=== PATIENT | male | born 1945 | race Caucasian/White ===

== ENCOUNTER 2016-10-09 10:20 | Inpatient (IN) | payer MEDICARE, OTHER ==
[~2016-10-09] VITALS: Ht 170.2 cm; Wt 75.8 kg
[~2016-10-09 10:20] MED LIST: ASPIRIN325 MG PO; BENADRYL25 MG PO; CYCLOBENZAPRINE10 MG PO; FLAGYL500 MG PO; HYDROCODONE-APA1 TAB PO; LEVAQUIN750 MG PO; LIDOCAINE50 GM TOPICAL; LINZESS145 MCG PO; LOTREL 5/20 MG1 CAP; LOVASTATIN20 MG PO; MOBIC7.5 MG PO; ULTRAM50 MG PO; XALATAN 0.0052.5 ML EACH EYE; [UNRECOGNIZED DRUG - OTHER] RC
--- NOTE | 2016-10-09 10:30 | NUR ---
PATIENT RECEIVED TO FLOOR FROM ADMISSIONS VIA WHEELCHAIR WITH HOSPITAL STAFF AND FAMILY. TRANSFERRED SELF TO BED. POSITIONED FOR COMFORT. A/O X4. RESPIRATIONS EVEN AND UNLABORED. ORIENTED TO ROOM. SIDE RAILS UP X2. BED IN LOW POSITION. CALL LIGHT IN REACH.
[2016-10-09] MEDS ORDERED: DURAGESIC1 PATCH .1 TRANSDERM (10:35)
--- NOTE | 2016-10-09 10:35 | NUR ---
INSTRUCTED PATIENT HE WOULD NOT BE ABLE TO HAVE ANYTHING TO EAT OR DRINK UNTIL AFTER CT SCAN WAS FINISHED. STATES UNDERSTANDING.
[2016-10-09] MEDS ORDERED: LIDOCAINE50 GM TOPICAL (10:36)
--- NOTE | 2016-10-09 11:00 | NUR ---
20 GAUGE IV SITED TO LEFT FOREARM X1 ATTEMPT. FLUSHES EASY WITH BRISK BLOOD RETURN PRESENT. SECURED WITH TAPE AND TEGADERM. WELL TOLERATED.
[2016-10-09 11:06] VITALS: BP 107/47
--- NOTE | 2016-10-09 11:35 | NUR ---
IV ABX INITIATED PER ORDER. C/O PAIN 03/27. 1 TAB PERCOCET ADMINISTERED WITH SIP OF WATER. DENIES FURTHER NEEDS. SIDE RAILS UP X2. BED IN LOW POSITION. CALL LIGHT IN REACH.
[2016-10-09 11:42] LABS: BASOPHILS 0.3 % (0.0-2.0); EOSINOPHILS 3.7 % (0-7); HEMATOCRIT 30.6 % (42.0-54.0); HEMOGLOBIN 10.5 g/dL (13.5-17.5); IMMATURE GRANULOCYTES 1.1 % (0-5); LYMPHOCYTES 8.3 % (15-50); MCH 32.8 pg (26.0-34.0); MCHC 34.3 g/dL (31.0-37.0); MCV 95.6 fL (80.0-100.0); MEAN PLATELET VOLUME 8.8 fL (7.4-10.4); MONOCYTES 9.9 % (2-11); NEUTROPHILS 76.7 % (40-80); PLATELET COUNT 236 10x3/uL (130-400); RDW 16.5 % (11.5-14.5); WBC 13.1 10x3/uL (4.8-10.8)
[2016-10-09 11:51] LABS: CALC OSMOLALITY 272 mosm/kg (275-300); CALCIUM 8.5 mg/dL (8.5-10.1); CHLORIDE - SERUM 100 mmol/L (98-107); CREATININE - SERUM 0.8 mg/dL (0.6-1.3); GLUCOSE 92 mg/dL (74-106); POTASSIUM - SERUM 4.3 mmol/L (3.5-5.1); SODIUM 136 mmol/L (136-145); UREA NITROGEN 14 mg/dL (7-18); eGFR NON AFRICAN AMERICAN > 90 mL/min (90-120)
--- NOTE | 2016-10-09 14:50 | NUR ---
PATIENT OFF FLOOR TO CT VIA BED.
[2016-10-09 15:40] VITALS: BP 95/42
--- NOTE | 2016-10-09 17:00 | NUR ---
PATIENT UP TO RESTROOM WITH ASSIST FROM FAMILY. DENIES NEEDS. STATES THEY DID A SITZ BATH EARILER.
[2016-10-09 19:00] VITALS: BP 107/51
--- NOTE | 2016-10-09 19:30 | NUR ---
RECIEVED SHIFT REPORT. PT IS LYING IN BED. ALERT AND ORIENTED AND ABLE TO VERBALIZE NEEDS. IV IS PATENT AND SALINE LOC AT THIS TIME. PT IS AMBULATORY BUT WAS INSTRUCTED TO CALL FOR ANY ASSISTANCE NEEDED. PT STATES PAIN IS 6/10. NO NEEDS ARE VERBALIZED AT THIS TIME. WILL CONTINUE TO MONITOR. SIDE RAILS ARE UP X 2. BED IS IN LOWEST POSITION. CALL LIGHT IS WITHIN REACH.
--- NOTE | 2016-10-09 20:24 | NUR ---
SHIFT ASSESSMENT COMPLETED. ANTIBIOTICS HUNG PER ORDER. PT C/DO PAIN 01/25. ADMINISTERED PRESCRIBED PRN PERCOCET PER ORDER. DENIES FURTHER NEEDS. WILL MONITOR. SIDE RAILS X 2. BED LOW. CALL LIGHT IN REACH.
[2016-10-10 04:00] VITALS: BP 110/59
[2016-10-10 05:39] LABS: BASOPHILS 0.2 % (0.0-2.0); EOSINOPHILS 4.7 % (0-7); HEMATOCRIT 33.9 % (42.0-54.0); HEMOGLOBIN 11.1 g/dL (13.5-17.5); IMMATURE GRANULOCYTES 1.3 % (0-5); LYMPHOCYTES 7.6 % (15-50); MCH 31.9 pg (26.0-34.0); MCHC 32.7 g/dL (31.0-37.0); MCV 97.4 fL (80.0-100.0); MEAN PLATELET VOLUME 9.3 fL (7.4-10.4); MONOCYTES 9.5 % (2-11); NEUTROPHILS 76.7 % (40-80); PLATELET COUNT 281 10x3/uL (130-400); RBC 3.48 10x6/uL (4.20-6.10); RDW 16.7 % (11.5-14.5); WBC 12.1 10x3/uL (4.8-10.8)
[2016-10-10 08:02] VITALS: BP 92/51
[2016-10-10 12:22] VITALS: BP 110/53
[2016-10-10 12:50] VITALS: Ht 170.2 cm; Wt 75.8 kg
[2016-10-10 16:04] VITALS: BP 123/58
--- NOTE | 2016-10-10 19:00 | NUR ---
PATIENT IN BED WATCHING TV. HOB 30 DEGREES. AAOX4. RR EVEN AND UNLABORED. 0 S/S OF DISTRESS. STATES PAIN IS A 7/10. IV TO LEFT FA SL WITH NO REDNESS OR SWELLING. DAUGHTER AT BEDSIDE. SRX1. BED LOW. CALL LIGHT WITHIN REACH.
[2016-10-10 20:00] VITALS: BP 107/56
--- NOTE | 2016-10-10 20:05 | NUR ---
PERCOCET GIVEN FOR PAIN. WILL REASSESS.
[2016-10-11] VITALS (10 sets, daily range): BP systolic 89–128; BP diastolic 47–63
--- NOTE | 2016-10-11 00:30 | NUR ---
PERCOCET GIVEN FOR PAIN. WILL REASSESS.
[2016-10-11 05:13] LABS: % SATURATION 10 % (15-55); IRON 21 ug/dl (35-150); TOTAL IRON BIND CAPACITY 199 ug/dl (260-445); UNSAT IRON BIND CAPACITY 178 ug/dl (150-375)
[2016-10-11 05:20] LABS: BASOPHILS 0.3 % (0.0-2.0); EOSINOPHILS 4.9 % (0-7); HEMATOCRIT 29.3 % (42.0-54.0); HEMOGLOBIN 10.1 g/dL (13.5-17.5); IMMATURE GRANULOCYTES 1.4 % (0-5); LYMPHOCYTES 3.2 % (15-50); MCH 32.9 pg (26.0-34.0); MCHC 34.5 g/dL (31.0-37.0); MEAN PLATELET VOLUME 9.1 fL (7.4-10.4); MONOCYTES 12.5 % (2-11); NEUTROPHILS 77.7 % (40-80); PLATELET COUNT 252 10x3/uL (130-400); RBC 3.07 10x6/uL (4.20-6.10); RDW 16.5 % (11.5-14.5); WBC 11.9 10x3/uL (4.8-10.8)
[2016-10-11 05:31] LABS: MCV 95.4 fL (80.0-100.0)
--- NOTE | 2016-10-11 07:30 | NUR ---
REPORT RECEIVED FROM SOFTBALL UMPIRE NURSE. CALL LIGHT IN REACH.
--- NOTE | 2016-10-11 08:29 | NUR ---
ASSESSMENT COMPLETED. OFFERED SCDs BUT WANTS TO WAIT UNTIL AFTER SURGERY TO PUT THEM ON. PERCOCET PO WITH SMALL SIP OF WATER PAIN OF 7. PREOP MEDS ADMINISTERED. CALL LIGHT IN REACH. DAUGHTER IN ROOM. WILL CONTIUE WITH PLAN OF CARE.
--- NOTE | 2016-10-11 09:25 | NUR ---
TO OR VIA BED.
--- NOTE | 2016-10-11 10:45 | NUR ---
RIGHT BUTTOCKS ABSCESS DRAINING WOUND RIGHT BUTTOCKS. CULTURE BY . PACKED WITH 1/4 PLAIN PACKING
--- NOTE | 2016-10-11 11:10 | NUR ---
BACK IN ROOM AT THIS TIME. STATING THAT HIS PAIN IS A 10. RECOVERY NURSE GAVE HIM 1 MG OF IV DILAUDID BUT DID NOT WANT TO GIVE HIM ANYTHING ELSE BECAUSE HIS O2 WAS DROPPING. AM MEDS ADMINISTERED. TURNED O2 UP TO 3L PER NC. DAUGHTER AT BEDSIDE. CALL LIGHT IN REACH.
--- NOTE | 2016-10-11 11:28 | NUR ---
ACTUALLY DECIDED TO REFUSE ALL MEDS EXCEPT LOVASTATIN SO ALL MEDS WASTED AND CREDITED TO PATIENT. OLD DURAGESIC PATCH WASTED WITH SUKHJINDER FOLEY. SCDs TO BLE. DILAUDID 1 MG SIVP. O2 SAT NOW 98% ON 3L PER NC.
--- NOTE | 2016-10-11 11:38 | NUR ---
PATIENT ALERT IN LOW VILLELA POSITION. NO SIGNS OF DISTRESS NOTED. FAMILY AND MCGREGOR, SALES AND MARKETING SPECIALIST AT BEDSIDE. BED IN LOW POSITION. CALL LIGHT IN REACH. SIDE RAILS UP X2.
--- NOTE | 2016-10-11 11:38 | NUR ---
VANCOMYCIN IVPB. CALL LIGHT IN REACH.
--- NOTE | 2016-10-11 13:33 | OP ---
PATIENT NAME: MARY ABURTO MEDICAL RECORD: [id number] :41 LOCATION:[id number] ADMISSION DATE:10/10/16 SURGEON: RYLAN WERNER MD DATE OF OPERATION: 10/11/2016 PREOPERATIVE DIAGNOSES: 1. Right perirectal abscess. 2. Anal adenocarcinoma. POSTOPERATIVE DIAGNOSES: 1. Right perirectal abscess. 2. Anal adenocarcinoma. PROCEDURE: I&D of the right buttock. SURGEON: Rylan Werner MD REPORT OF PROCEDURE: The patient was placed in lithotomy position and the perianal region was prepped and draped in sterile fashion. Immediately, there was noted to be some spillage of purulent material from inside of the rectum. I did a digital rectal exam, it was difficult to make out much of the material because he had so much inflammation and induration from his known history of anal cancer along with the fact he had a lot of erythema and induration from the abscess. A skin incision was made on the anterior aspect of the right buttock and a large amount of purulence was removed. Cultures were taken times 2. We then irrigated out the wound thoroughly with peroxide and saline solution and then packed the wound with quarter inch packing strips. COMPLICATIONS: None. CONDITION: Stable. ANESTHESIA: General endotracheal. BLOOD LOSS: Minimal. TRANSINT:[id number] Voice Confirmation ID: [id number] DOCUMENT ID: [id number] RYLAN WERNER MD at 1333 CC: MILLY DENNY MD and GAVIN MARSHALL [id number] DICTATION DATE: 10/11/16 1021 FAN MAIL EDITOR: 10/11/16 1244 ADM IN [place] [id number] [place] [address]
--- NOTE | 2016-10-11 13:47 | NUR ---
KIARRA NEWMAN. CALL LIGHT IN REACH.
--- NOTE | 2016-10-11 13:55 | NUR ---
GAUZE AND ABD FELL OFF OF BUTTOCKS. MORE GAUZE AND ABD APPLIED TO BUTTOCKS AND SECURED WITH TAPE.
--- NOTE | 2016-10-11 14:32 | NUR ---
PAIN OF 5. PERCOCET PO. WANTS SCDs OFF AT THIS TIME.
--- NOTE | 2016-10-11 16:42 | NUR ---
HAS WEANED OFF O2. WILL RECHECK IN 15-30 MINUTES TO SEE IF HIS O2 SAT IS OK.
--- NOTE | 2016-10-11 17:02 | NUR ---
DRSG CHANGED AGAIN AFTER PATIENT HAD ANOTHER BM.
--- NOTE | 2016-10-11 17:09 | NUR ---
Patient Name: MARY ABURTO Admission Status: Urgent Accout number: [id number] Admission Date: 10-10-2016 : 1945 Admission Diagnosis: Attending: YANCI Current LOS: 1 Anticipated DC Date: 10-14-2016 Planned Disposition: Home Primary Insurance: MEDICARE A & B Discharge Planning Comments: CM MET WITH PATIENT REGARDING D/C NEEDS AND PLANS. PATIENT STATED HE LIVES ALONE AND HIS DAUGHTER (CARLOS) WILL DRIVE HIM HOME AT DISCHARGE. THERE ARE 12 STEPS W/RAILS TO ENTER HOME AND NO STAIRS INSIDE. PATIENT STATED HE IS INDEPENDENT WITH HIS CARE AND HAS NO DME AT HOME. PATIENTS PCP IS DR. LEMUS AND PH[facility]ACY IS [facility]. PATIENT REFUSED HH AT THIS TIME BUT WILL CONSIDER IT IF DOCTOR THINKS HE NEEDS IT. CM WILL CONTINUE TO FOLLOW PATIENT WITH D/C NEEDS AND PLANS. PCP DR. MARIAH NIETO BY MARY CARLOS DOUGLAS (DAUGHTER) [phone] Fireman: Misti Jenkins Is the patient Alert and Oriented? Yes 0 * How many steps to enter\exit or inside your home? 12 W/RAILS 0 * PCP DR. LEMUS 0 * Pharmacy [facility] 0 * Preadmission Environment Home Alone 0 * ADLs Independent 0 * Equipment None 0 * List name and contact numbers for known caregivers / representatives who currently or will assist patient after discharge: CARLOS DOUGLAS (daughter) [phone] * Community resources currently utilized None 0 * Additional services required to return to the preadmission environment? Yes 0 * Can the patient safely return to the preadmission environment? Yes 0 * Has this patient been hospitalized within the prior 30 days at any hospital? No 0 Grand Total: 0
--- NOTE | 2016-10-11 18:19 | NUR ---
NO CHANGES IN INITIAL ASSESSMENT. STILL WANTS SCDs OFF FOR NOW. CALL LIGHT IN REACH. WILL CONTINUE WITH PLAN OF CARE.
--- NOTE | 2016-10-11 20:00 | NUR ---
PATIENT HAD BM AND SOILED DRESSING TO PERIRECTAL AREA. CLEANED AND CHANGED DRESSING. PATIENT NOW IN BED WITH NO DISTRESS NOTED. STATES PAIN IS A 6/10. IV TO LEFT FA SL WITH NO REDNESS OR SWELLING. SCD'S IN ROOM BUT OFF. DAUGHTER AT BEDSIDE. CALL LIGHT WITHIN REACH.
--- NOTE | 2016-10-12 00:40 | NUR ---
PERCOCET GIVEN FOR PAIN. WILL REASSESS.
[2016-10-12 04:00] VITALS: BP 141/54
--- NOTE | 2016-10-12 04:00 | NUR ---
PATIENT IN BED WATCHING TV. DENIES NEEDS AT THIS TIME. ASSESSMENT UNCHANGED THROUGHOUT SHIFT.
[2016-10-12 04:37] LABS: BASOPHILS 0.3 % (0.0-2.0); EOSINOPHILS 4.9 % (0-7); HEMATOCRIT 29.8 % (42.0-54.0); HEMOGLOBIN 9.7 g/dL (13.5-17.5); IMMATURE GRANULOCYTES 1.2 % (0-5); LYMPHOCYTES 2.7 % (15-50); MCH 31.6 pg (26.0-34.0); MCHC 32.6 g/dL (31.0-37.0); MCV 97.1 fL (80.0-100.0); MEAN PLATELET VOLUME 8.8 fL (7.4-10.4); MONOCYTES 10.7 % (2-11); NEUTROPHILS 80.2 % (40-80); PLATELET COUNT 221 10x3/uL (130-400); RBC 3.07 10x6/uL (4.20-6.10); RDW 16.5 % (11.5-14.5); WBC 13.6 10x3/uL (4.8-10.8)
--- NOTE | 2016-10-12 07:00 | NUR ---
PT REC'D FROM SUKHJINDER GUZMÁN. SITTING UP IN CHAIR AT BEDSIDE WITH BREAKFAST TRAY AND DAUGHTER IN ROOM. AAOX4. RATING CURRENT PAIN IN BUTTOCK 02/24. REQUESTING PAIN MEDICATION. STATED I WOULD ADMINISTERED IT WITH HIS MORNING MEDS. PT STATES THAT IS FINE. DAUGHTER STATES SHE JUST CHANGED THE DRESSING TO HIS BUTTOCK. TOLD PT AND DAUGHTER TO ALERT ME WHEN PT HAD ANOTHER BM SO THAT I COULD SEE THE WOUND. BED LOW, CALL LIGHT IN REACH, DENIES NEEDS.
[2016-10-12 08:12] VITALS: BP 112/56
--- NOTE | 2016-10-12 08:45 | NUR ---
MORNING MEDS PASSED. PRN PAIN MEDICATION ADMINISTERED PER 7/10 BUTTOCK PAIN. WILL REASSESS. IV SITE TO L FOREARM PATENET. IV ABX ADMINISTERED. BED LOW, CALL LIGHT IN REACH, DENIES NEEDS.
--- NOTE | 2016-10-12 11:00 | NUR ---
ALERTED BY DAUGHTER THAT PT HAD SMALL BM. DRESSING TO R BUTTOCK CHANGED WITH 4X4 AND METAPORE TAPE APPLIED. TOLERATED WELL. BED LOW, CALL LIGHT IN REACH, DENIES NEEDS. STATES PAIN IS STILL 7/10, BUT TOLERABLE.
[2016-10-12 11:37] VITALS: BP 98/54
--- NOTE | 2016-10-12 14:50 | NUR ---
PRN DILAUDID ADMINISTERED AT THIS TIME PER PT COMPLAINTS OF 6/10 BUTTOCK PAIN. WILL REASSESS. IV ABX STARTED.
[2016-10-12 15:07] VITALS: BP 98/51
--- NOTE | 2016-10-12 18:10 | NUR ---
PT RESTING IN BED WITH FAMILY IN ROOM. DRESSING TO BUTTOCK CHANGED PER DAUGHTER. BED LOW, CALL LIGHT IN REACH, DENIES NEEDS. CPOC.
--- NOTE | 2016-10-12 18:30 | NUR ---
QUIET IN ROOM AT PRESENT AT BEDSIDE DENIES ANY NEEDS RESP EVEN AND UNLABORED AT PRESENT.
--- NOTE | 2016-10-12 19:00 | NUR ---
PATIENT IN BED WATCHING TV. HOB 30 DEGREES. AAOX4. RR EVEN AND UNLABORED. 0 S/S OF DISTRESS. STATES PAIN IS AN 8/10. IV TO LEFT FA SL WITH NO REDNESS OR SWELLING. DAUGHTER AT BEDSIDE. SRX1. BED LOW. CALL LIGHT WITHIN REACH.
--- NOTE | 2016-10-12 20:35 | NUR ---
PERCOCET GIVEN FOR PAIN. WILL REASSESS.
--- NOTE | 2016-10-12 21:50 | NUR ---
INITIATED DILAUDID MARKETING STRATEGY ANALYST PER ORDER BY DR. BOURGEOIS. INSTRUCTED PATIENT ON USE.
[2016-10-12 21:58] VITALS: BP 126/62
[2016-10-13 05:00] VITALS: BP 111/54
--- NOTE | 2016-10-13 07:45 | NUR ---
RE'D PATIENT LYING IN BED RESTING WITH DAUGHTER IN THE ROOM. INTRODUCED MYSELF. DENIED PAIN. ALERT AND ORIENTED X4. SPEECH CLEAR AND APPROPRAIATE. IV SITE PATENT. STATED LAST BM WAS 10/13/16 @0200. IS ON A CROSSING SUPERVISOR PUMP NOW, STANDARD SETTING. SKIN WARM AND DRY. MUCUS MEMBRANES PINK AND MOSIST. HAS A DRESSING ON THE RIGHT BUTTOCKS THAT IS PACKED. SKIN AROUND IS HARD SITE IS CLEAN AND DRY. DAUGHTER ALSO CHANGES THE DRESSING AFTER HE USES THE RESTROOM. INSTUCTED TO COME AND GET ME WHEN HE GOES SO I CAN INSPECT IT. VERBALIZED UNDERSTANDING. BED LOW, LOCKED, CALL LIGHT IN REACH. INSTRUCTED TO CALL IF NEEDED ANYTHING PATIENT AND DAUGHTER VERBALIZED UNDERSTANDING.
[2016-10-13 08:37] VITALS: BP 115/58
--- NOTE | 2016-10-13 09:00 | NUR ---
ALERTED BY PT DAUGHTER THAT IV TUBING WAS LEAKING. LEAKING AT SITE WHERE PRIMARY IS CONNECTED TO PROCESS IMPROVEMENT CONSULTANT TUBING. PRIMARY TUBING CHANGED, BUT DID NOT HELP. PROCESS IMPROVEMENT CONSULTANT TUBING CHANGED BY MICAH DE LA ROSA. BED LOW, CALL LIGHT IN REACH, DENIES NEEDS. CPOC.
[2016-10-13 12:00] VITALS: BP 112/50
--- NOTE | 2016-10-13 14:16 | NUR ---
PATIENT STATED THAT HE WAS HAVING 6/10 PAIN BUT THAT HE JUST HIT HIS BROOD HATCHERY MANAGER BUTTON. DENIED NEEDING ANYTHING. LYING IN BED ON BACK WATCHING TV. FAMILY MEMBER IN THE ROOM WITH. INTRUCTED PATIENT TO CALL IF NEEDED ANYTHING. PATIENT VERBALIZED UNDERSTANDING. BED LOW, LOCKED, CALL LIGHT IN REACH.
[2016-10-13 15:58] VITALS: BP 108/52
--- NOTE | 2016-10-13 19:00 | NUR ---
PATIENT IN BED WATCHING TV. HOB 30 DEGREES. AAOX4. RR EVEN AND UNLABORED. 0 S/S OF DISTRESS. STATES PAIN IS A 9/10. INSTRUCTED PATIENT TO USE WIRE MACHINE OPERATOR BUTTON. IV TO LEFT FA SL WITH NO REDNESS OR SWELLING. DAUGHTER AT BEDSIDE. SRX2. BED LOW. CALL LIGHT WITHIN REACH.
--- NOTE | 2016-10-13 19:06 | NUR ---
DR CHRISTELLE WHITLEY. PATIENT STILL REQUIRES NEWSPAPER PUBLISHER FOR PAIN MANAGEMENT. D/C HOME POSSIBLE TOMORROW IF PAIN IS UNDER CONTROL.
--- NOTE | 2016-10-13 20:11 | NUR ---
QUIET IN ROOM AT PRESENT N/C VOICED AT PRESENT.
--- NOTE | 2016-10-13 20:30 | NUR ---
ASSESSMENT COMPLETE. PATIENT STATES PAIN IS DOWN TO A 6/10. IV ANTIBIOTICS INITIATED PER ORDER.
[2016-10-13 21:00] VITALS: BP 112/65; BP 171/71
[2016-10-14 01:00] VITALS: BP 112/57
--- NOTE | 2016-10-14 03:15 | NUR ---
LIQUEFIED NATURAL GAS OPERATOR SYRINGE REPLACED.
[2016-10-14 05:00] VITALS: BP 112/59
--- NOTE | 2016-10-14 06:59 | NUR ---
LYING IN BED AWAKE,WITHOUT DISTRESS. AT SIDE.CALL LIGHT IN REACH.
[2016-10-14 07:56] VITALS: BP 111/60
--- NOTE | 2016-10-14 08:37 | NUR ---
PT AWAKE AND ALERT ORIENTED X 3 LUNGS CLAER BIALTERALLY NO ACUTE DISTRESS NTOED TOOK AM MEDS WITH NO DIFFICULTY DURAGESIC PATCH PLACED TO RIGHT SHOULDER OLD PATCH REMOVED FROM LEFT BACK AND WASTED IN SHARPS. DAUGHTER AT BEDSIDE.
--- NOTE | 2016-10-14 10:56 | NUR ---
NO ACUTE DISTRESS NOTED VOICES ALL NEEDS TO STAFF. DAUGHTER AT SIDE. CALL LIGHT IN REACH SIDE RAILS UP X 2 DRESSING CLEAN DRY AND INTACT
[2016-10-14 12:42] VITALS: BP 109/53
--- NOTE | 2016-10-14 12:55 | NUR ---
NUTRITION MONITORING & EVAL CHART REVIEWED, PT VISIT. TOLERATING REG DIET. ENSURE WITH MEALS. GOOD PO INTAKE AT THIS TIME. RD FOLLOWING
[2016-10-14] MEDS ORDERED: BACTRIM DS TABL1 TAB PO (13:05)
[2016-10-14] MEDS ORDERED: PERCOCET 10/3251 TA1 PO (13:06)
--- NOTE | 2016-10-14 13:48 | NUR ---
CM REASSESSMENT NOTE: PATIENT IS D/C HOME TODAY-DAUGHTER DRIVING HIM. PATIENT CHOSE [facility] AND NAM WAS SIGNED. REFERRAL SENT. PATIENT DENIED ANY OTHER NEEDS.
--- NOTE | 2016-10-14 14:58 | NUR ---
PT DISCHARGE INSTRUCTIONS GIVEN WELL DISCHARGE RX AND INSTRUCTIONS. PT IV D/C TOLERATED WELL.
--- NOTE | 2016-10-17 13:01 | DS ---
PATIENT:MARY ABURTO :41 MEDICAL RECORD: [id number] DISCHARGE SUMMARY ADMISSION DATE: 10/10/16 DISCHARGE DATE: 10/14/16 DATE OF ADMISSION: 10/09/2016 DATE OF DISCHARGE: 10/14/2016 ADMISSION DIAGNOSES: 1. Perianal cellulitis/abscess. 2. Anal adenocarcinoma. 3. Hypercholesterolemia. 4. Hypertension. DISCHARGE DIAGNOSES: 1. Perianal cellulitis/abscess. 2. Anal adenocarcinoma. 3. Hypercholesterolemia. 4. Hypertension. PROCEDURES: I&D of perirectal abscess on 10/11/2016. CONSULTATIONS: None. REPORT OF HOSPITALIZATION: The patient was admitted to the hospital after evacuation in clinic, which showed that the patient had significant perianal/gluteal cellulitis or abscess on the right side. The patient was started on vancomycin and Zosyn. We watched it for couple of days and at which point a CT scan was performed which showed no drainable fluid collection at the time of admission, but there was a significant amount of cellulitis with some air pockets. By the hospital day #2, we had actually developed an abscess, which was palpable. He was taken to the operating room for incision and drainage. Cultures were taken and this grew 2 types of Klebsiella and 1 type of E. coli. The patient was covered appropriately with the antibiotics and was switched over to p.o. Bactrim. He had some pain issues for the first few days after surgery, but eventually this calmed down. At that point, he was felt to be stable for discharge home with home health for daily dressing changes. DISCHARGE INSTRUCTIONS: 1. Change the packing daily with quarter inch packing strips. 2. Continue antibiotics to completion. DISCHARGE MEDICATIONS: Resume home medications with the inclusion of Percocet 10 mg, dispensing 60 and Bactrim-DS 1 p.o. b.i.d. for 10 days. FOLLOWUP: In clinic with me in 1-2 weeks. TRANSINT:[id number] Voice Confirmation ID: [id number] DOCUMENT ID: [id number] DISCHARGE SUMMARY REPORT [id number] LAMONTEMARYMIREYA QURESHI MD at 1301 CC: MILLY DENNY MD and GAVIN MARSHALL [phone] DICTATION DATE: 10/14/16 1321 LEGAL INSTRUMENTS EXAMINER: 10/14/163 DIS IN 10/14/16 [facility] [address] [facility] [address]
== END 2016-10-14 15:05 | disposition home health service (06) | DRG 394 ==
LOC: D.MS 10:20 → OBSVTIME 10:20 → D.MS 10:20
PROVIDERS: Internal Medicine Medical Oncology; ADMIT Surgery
PROC: 0H98XZZ Drainage of Buttock Skin, External Approach (ICD-10-PCS; principal; 2016-10-11 10:00)
DX: K61.1 Rectal abscess (principal); C21.0 Malignant neoplasm of anus, unspecified; E78.00 Pure hypercholesterolemia, unspecified; I10 Essential (primary) hypertension; B96.1 Klebsiella pneumoniae [K. pneumoniae] as the cause of diseases classified elsewhere; B96.20 Unspecified Escherichia coli [E. coli] as the cause of diseases classified elsewhere

== ENCOUNTER 2016-11-12 09:58 | Inpatient (IN) | payer MEDICARE, OTHER ==
[2016-11-12] VITALS (10 sets, daily range): BP systolic 117–150; BP diastolic 61–70; BMI 24.3
[~2016-11-12] VITALS: Ht 170.2 cm; Wt 70.3 kg
[~2016-11-12 09:58] MED LIST changes: +BACTRIM DS TABL1 TAB PO; +DURAGESIC1 PATCH .1 TRANSDERM; +PERCOCET 10/3251 TA1 PO
[2016-11-12 12:16] LABS: BASOPHILS 0.2 % (0.0-2.0); EOSINOPHILS 0.8 % (0-7); HEMATOCRIT 28.5 % (42.0-54.0); HEMOGLOBIN 9.7 g/dL (13.5-17.5); IMMATURE GRANULOCYTES 0.2 % (0-5); LYMPHOCYTES 4.4 % (15-50); MCV 94.1 fL (80.0-100.0); MEAN PLATELET VOLUME 9.5 fL (7.4-10.4); MONOCYTES 11.3 % (2-11); NEUTROPHILS 83.1 % (40-80); PLATELET COUNT 241 10x3/uL (130-400); RBC 3.03 10x6/uL (4.20-6.10); RDW 15.9 % (11.5-14.5); WBC 8.8 10x3/uL (4.8-10.8)
[2016-11-12 13:05] LABS: CALC OSMOLALITY 279 mosm/kg (275-300); CARBON DIOXIDE 31.5 mmol/L (21.0-32.0); CHLORIDE - SERUM 101 mmol/L (98-107); CREATININE - SERUM 0.7 mg/dL (0.6-1.3); GLUCOSE 91 mg/dL (74-106); POTASSIUM - SERUM 3.8 mmol/L (3.5-5.1); SODIUM 141 mmol/L (136-145); UREA NITROGEN 11 mg/dL (7-18); eGFR NON AFRICAN AMERICAN > 90 mL/min (90-120)
[2016-11-12 13:09] LABS: INR 1.04 (0.85-1.17); PROTIME 13.4 SECONDS (11.6-15.0)
[2016-11-12 13:10] LABS: APTT 30.9 SECONDS (22.8-39.4)
--- NOTE | 2016-11-12 16:25 | NUR ---
PATIENT RECEIVED TO FLOOR FROM PACU VIA STRETCHER. TRANSFERRED TO BED AND POSITIONED FOR COMFORT. WELL TOLERATED. VITAL SIGNS STABLE. RESTING WITH EYES CLOSED. WAKES EASY. FAMILY PRESENT. SCDS ON BILATERALLY. NEW COLOSTOMY TO LEFT ABD WITH APPLIANCE INTACT. NO DRAINAGE TO BAG. LAP SITES NOTED WITH BANDAIDS INTACT. SIDE RAILS UP X2. BED IN LOW POSITION. CALL LIGHT IN REACH.
--- NOTE | 2016-11-12 17:00 | NUR ---
PATIENT IN [place] POSITION RESTING WITH EYES CLOSED. VITAL SIGNS STABLE. SIDE RAILS UP X2. BED IN LOW POSITION. CALL LIGHT IN REACH.
--- NOTE | 2016-11-12 18:15 | NUR ---
PATIENT IN [place] POSITION RESTING WITH EYES CLOSED. RESPIRATIONS EVEN AND UNLABORED. SIDE RAILS UP X2. BED IN LOW POSITION. CALL LIGHT IN REACH. FAMILY PRESENT.
--- NOTE | 2016-11-12 19:20 | NUR ---
RECIEVED SHIFT REPORT. PT IS LYING IN BED. ALERT AND ORIENTED AND ABLE TO VERBALIZE NEEDS. IV IS PATENT AND FLUIDS ARE RUNNING PER ORDER. SCD'S ON. NEW COLOSTOMY INTACT AND STOMA IS BEEFY RED IN APPEARANCE. NO STOOL IN BAG AT THIS TIME. PT STATES PAIN IS 10/10. O2 @ 1 PER NASAL CANNULA. PT IS AMBULATORY WITH ASSISTANCE. NO NEEDS ARE VERBALIZED AT THIS TIME. WILL CONTINUE TO MONITOR. SIDE RAILS ARE UP X 2. BED IS IN LOWEST POSITION. FAMILY IS AT BEDSIDE. CALL LIGHT IS WITHIN REACH.
--- NOTE | 2016-11-12 20:23 | NUR ---
SHIFT ASSESSMENT COMPLETED. NIGHT MEDS GIVEN WITH NO PROBLEMS. PT C/O PAIN 05/27. ADMINISTERED PRESCRIBED PRN DILAUDID PER ORDER. DENIES FURTHER NEEDS. FAMILY AT BEDSIDE. WILL MONITOR. SIDE RAILS X 2. BED LOW. CALL LIGHT IN REACH.
[2016-11-13 02:04] VITALS: BP 141/63
[2016-11-13 06:04] LABS: CALC OSMOLALITY 271 mosm/kg (275-300); CALCIUM 8.9 mg/dL (8.5-10.1); CARBON DIOXIDE 26.2 mmol/L (21.0-32.0); CHLORIDE - SERUM 99 mmol/L (98-107); CREATININE - SERUM 0.6 mg/dL (0.6-1.3); GLUCOSE 113 mg/dL (74-106); POTASSIUM - SERUM 3.7 mmol/L (3.5-5.1); SODIUM 136 mmol/L (136-145); UREA NITROGEN 11 mg/dL (7-18); eGFR NON AFRICAN AMERICAN > 90 mL/min (90-120)
[2016-11-13 06:15] VITALS: BP 145/68
[2016-11-13 06:22] LABS: BASOPHILS 0.1 % (0.0-2.0); EOSINOPHILS 0 % (0-7); HEMATOCRIT 28.5 % (42.0-54.0); HEMOGLOBIN 9.4 g/dL (13.5-17.5); IMMATURE GRANULOCYTES 0.6 % (0-5); LYMPHOCYTES 2.4 % (15-50); MCH 30.7 pg (26.0-34.0); MCV 93.1 fL (80.0-100.0); MEAN PLATELET VOLUME 9.2 fL (7.4-10.4); MONOCYTES 9.2 % (2-11); NEUTROPHILS 87.7 % (40-80); PLATELET COUNT 264 10x3/uL (130-400); RBC 3.06 10x6/uL (4.20-6.10); RDW 15.7 % (11.5-14.5)
[2016-11-13 06:24] LABS: WBC 12.3 10x3/uL (4.8-10.8)
--- NOTE | 2016-11-13 07:00 | NUR ---
PATIENT RECEIVED IN LOW VILLELA POSITION RESTING WITH EYES CLOSED. RESPIRATIONS EVEN AND UNLABORED. SIDE RAILS UP X2. BED IN LOW POSITION. CALL LIGHT IN REACH. FAMILY AT BEDSIDE.
[2016-11-13 08:46] VITALS: BP 122/75; BP 145/66
--- NOTE | 2016-11-13 08:53 | NUR ---
ALERT IN BED WITH FAMILY PRESENT. NO SIGNS OF DISTRESS NOTED. C/O NAUSEA. ZOFRAN ADMINISTERED PER PRN ORDER. SCHEDULED MEDICATION GIVEN. DENIES FURTHER NEEDS. SIDE RAILS UP X2. BED IN LOW POSITION. CALL LIGHT IN REACH.
--- NOTE | 2016-11-13 10:25 | NUR ---
C/O PAIN 04/27. NORCO PER PRN ORDER. NO FURTHER NEEDS VOICED. SIDE RAILS UP X2. BED IN LOW POSITION. CALL LIGHT IN REACH.
--- NOTE | 2016-11-13 11:30 | NUR ---
PATIENT ASSISTED UP TO SITTING IN CHAIR AT BEDSIDE. WELL TOLERATED. DENIES NEEDS. GONZALES NURSE AID AT BEDSIDE.
--- NOTE | 2016-11-13 11:32 | NUR ---
Patient Name: MARY ABURTO Admission Status: Elective Accout number: [id number] Admission Date: 11-12-2016 : 1945 Admission Diagnosis: Attending: YANCI Current LOS: 1 Anticipated DC Date: 11-18-2016 Planned Disposition: Home Primary Insurance: MEDICARE A & B Discharge Planning Comments: CM MET WITH PATIENT REGARDING D/C NEEDS AND PLANS. PATIENT STATED HE LIVES ALONE AND HIS DAUGHTER (CARLOS) WILL DRIVE HIM HOME AT DISCHARGE. PATIENT HAS 8 STEPS W/RAILS TO ENTER HOME AND NO STAIRS INSIDE. PATIENT STATED HE IS INDEPENDENT WITH HIS CARE AND HAS NO DME AT HOME. PATIENTS PCP IS DR. LEMUS AND PHARMACY IS [facility]. PATIENT IS CURRENT WITH [facility]. CM WILL CONTINUE TO FOLLOW PATIENT WITH D/C NEEDS AND PLANS. PCP DR. MARIAH IZAGUIRRER [facility]- [phone] CARLOS ACCE [phone] Audio Visual Manager: Misti Jenkins Is the patient Alert and Oriented? Yes 0 * How many steps to enter\exit or inside your home? 8 W/RAILS 0 * PCP DR. LEMUS 0 * Pharmacy [facility] 0 * Preadmission Environment Home Alone 0 * ADLs Independent 0 * Equipment None 0 * List name and contact numbers for known caregivers / representatives who currently or will assist patient after discharge: CARLOS ROBLERO (DAUGHTER) 0 * Community resources currently utilized Home Health 0 * Please name any agencies selected above. [facility] 0 * Additional services required to return to the preadmission environment? Yes 0 * Can the patient safely return to the preadmission environment? Yes 0 * Has this patient been hospitalized within the prior 30 days at any hospital? No 0 Grand Total: 0
--- NOTE | 2016-11-13 12:05 | NUR ---
ASSISTED BACK TO BED BY FAMILY
[2016-11-13 12:45] VITALS: BP 140/65
[2016-11-13 13:22] VITALS: Ht 170.2 cm; Wt 70.3 kg
--- NOTE | 2016-11-13 14:37 | NUR ---
C/O PAIN 03/27. 1 TAB PERCOCET PER PRN ORDER. DENIES FURTHER NEEDS. FAMILY AT BEDSIDE. SIDE RAILS UP X2. BED IN LOW POSITION. CALL LIGHT IN REACH.
--- NOTE | 2016-11-13 15:50 | NUR ---
PATIENT SITTING UP IN CHAIR AT BEDSIDE. NO SIGNS OF DISTRESS NOTED. FAMILY AT BEDSIDE. DENIES NEEDS. CALL LIGHT IN REACH.
[2016-11-13 16:43] VITALS: BP 141/67
--- NOTE | 2016-11-13 19:52 | NUR ---
REC'D. EYES CLOSED RESP. DEEP AND EVEN.FAMILY AT BEDSIDE. WILL CONTINUE TO MONITOR FOR ANY CHGES. AND FOLLOW CURRENT PLAN OF CARE
[2016-11-13 20:00] VITALS: BP 118/62
--- NOTE | 2016-11-14 01:49 | NUR ---
PATIENT RESTING IN BED AND DENIES NEEDS AT THIS TIME. BED IN LOWEST POSITION AND CALL LIGHT WITHIN REACH. ENCOURAGED PATIENT TO CALL IF HE HAS NEEDS.
[2016-11-14 04:00] VITALS: BP 114/60
--- NOTE | 2016-11-14 08:03 | NUR ---
AWAKE AND ALERT AT THIS TIME. SELF POSITIONS IN BED FOR COMFORT. COLOSTOMY TO LEFT ABDOMEN DRAINING THIN, BLOODY TO BROWN LIQUID. ASSESSMENT PERFORMED PER FLOWSHEET. IV TO LEFT WRIST PATENT. DAUGHTER AT BEDSIDE. BED ALARM ON AND IN WORKING ORDER. DENIES PAIN. HOPEFUL FOR D/C HOME TODAY, CALL LIGHT IN REACH, BED IN LOWEST POSITION WITH WHEELS LOCKED AND SRX2. WILL CONTINUE WITH PLAN OF CARE.
[2016-11-14 08:41] VITALS: BP 114/63
--- NOTE | 2016-11-14 11:14 | NUR ---
PRN PERCOCET ADMINISTERED PER ORDER FOR PAIN. DAUGHTER AT BEDSIDE. DENIES FURTHER NEEDS AT THIS TIME. WILL CONTINUE WITH PLAN OF CARE.
[2016-11-14 13:03] VITALS: BP 98/51
[2016-11-14] MEDS ORDERED: PERCOCET 10/3251 TA1 PO (13:47)
--- NOTE | 2016-11-14 15:00 | NUR ---
SUKHJINDER BEDOLLA WITH WOUND CARE PROVIDED OSTOMY TEACHING FOR D/C.
--- NOTE | 2016-11-14 15:39 | NUR ---
WOUND CARE/OSTOMY TEACHING: MET WITH PT AND FAMILY MEMBER TO DISCUSS COLOSTOMY. INFORMATION GIVEN IN FORM OF A BOOKLET THAT INCLUDES: SKIN CARE, BATHING, DIET, ODOR, GAS, ETC ALONG WITH ROUTINE CARE AND MAINTAINING YOUR LIFESTYLE. PT WAS VERY PRECEPTIVE AND ASKED QUESTIONS. INFO WAS ALSO GIVEN ON THE OSTOMY SUPPORT GROUP HERE IN [place]. PT WILL HAVE [facility] FOR FURTHER EDUCATION AND TEACHING.
--- NOTE | 2016-11-14 15:58 | NUR ---
CM REASSESSMENT NOTE: PATIENT IS DISCHARGING HOME TODAY- DRIVING HIM. PATIENT IS CURRENT WITH [facility]-NOTIFIED. SUPPLIES SENT WITH PATIENT PER NURSE COBURN.
--- NOTE | 2016-11-14 16:00 | NUR ---
PRN PERCOCET ADMINISTERED FOR PAIN AT THIS TIME PER ORDER. TO D/C HOME ONCE D/C PAPERWORK IS COMPLETE. DENIES NEEDS AT PRESENT. WILL CONTINUE WITH PLAN OF CARE.
--- NOTE | 2016-11-14 17:05 | NUR ---
IV D/C WITH CATH TIP INTACT. INSTRUCTED PT AND DAUGHTER ON HOW TO EMPTY AND BURP COLOSTOMY. DENIES QUESTIONS REGARDING DISCHARGE INSTRUCTIONS OR COLOSTOMY. WILL D/C HOME WITH DAUGHTER.
--- NOTE | 2016-11-15 13:21 | OP ---
PATIENT NAME: MARY ABURTO MEDICAL RECORD: [id number] :41 LOCATION:D[id number] ADMISSION DATE:11/12/16 SURGEON: RYLAN WERNER MD DATE OF OPERATION: 11/12/2016 PREOPERATIVE DIAGNOSES: 1. Anal cancer. 2. Perianal abscess. 3. Hypercholesterolemia. 4. Hypertension. POSTOPERATIVE DIAGNOSES: 1. Anal cancer. 2. Perianal abscess. 3. Hypercholesterolemia. 4. Hypertension. PROCEDURE: Laparoscopic sigmoid colostomy. SURGEON: Rylan Werner MD REPORT OF PROCEDURE: The patient's abdomen was prepped and draped in sterile fashion. A Veress needle was inserted in the left upper quadrant and abdomen was insufflated. A 5 mm Visiport trocar was then inserted in the left upper quadrant laterally. This penetrated through some omentum and we entered the abdominal cavity. Once inside, I was able to place a 12-mm trocar just anterior to the right anterior superior iliac crest and another 5-mm trocar was then placed in the right lower lateral abdomen. We took down some adhesions of the omentum to the anterior abdominal wall. Once this was done, we approached the patient's pelvic region. There was no sign of any gross malignancy present at this time. A window was made in the peritoneum in the right side of the patient's pelvic peritoneum. We dissected through the subcutaneous tissue just underneath the patient's rectosigmoid junction. Once we had a window opened, then we transected this with a 60 blue load Endo-KITTY stapler. The superior hemorrhoidal vessels were then localized and these were transected with the 45 white load Endo-KITTY stapler. At this point, we dissected up the peritoneal attachments of the sigmoid colon and was able to elevate it up into the abdomen. At this point, we saw no sign of any active bleeding. A circular skin incision was made in the left lower abdomen. Electrocautery was used to dissect out the subcutaneous tissue. A cruciate incision was then made over the patient's anterior fascia. We then the fibers of the patient's rectus musculature and using electrocautery, we entered the abdominal cavity through the peritoneum. The distal end of the sigmoid colon was then eviscerated through this wound. We kept this in position. At this point, we took down all of the trocars. The 12-mm trocar site fascia was closed with interrupted 0 Vicryl. The subcutaneous tissues were then reapproximated with subcutaneous 5-0 Monocryl. After these were covered, then the distal sigmoid colon was opened up and a Nora sigmoid colostomy was performed using multiple interrupted 4-0 Vicryls. We then covered this with a colostomy bag. At this point, all the wounds were dressed appropriately. COMPLICATIONS: None. CONDITION: Stable. OPERATIVE REPORT [id number] MARY ABURTO ANESTHESIA: General endotracheal. BLOOD LOSS: 50 mL. TRANSINT:[id number] Voice Confirmation ID: [id number] DOCUMENT ID: [id number] RYLAN WERNER MD at 1321 CC: MILLY DENNY MD, SAVI LEMUS DAVID [id number] DICTATION DATE: 11/12/16 1532 CHORE TENDER: 11/12/163 DIS IN 11/14/16 [address] [place] [address]
== END 2016-11-14 17:25 | disposition home health service (06) | DRG 330 ==
LOC: D.MS 09:58 → OBSVTIME 09:58 → D.MS 09:58 → D.SDCHOLD 09:58 → D.MS 09:59 → D.SDCHOLD 12:15 → D.MS 15:43
PROVIDERS: Anesthesiology; ADMIT Surgery
PROC: 0D1N4Z4 Bypass Sigmoid Colon to Cutaneous, Percutaneous Endoscopic Approach (ICD-10-PCS; principal; 2016-11-12 12:15)
DX: C21.0 Malignant neoplasm of anus, unspecified (principal); K61.0 Anal abscess; E78.00 Pure hypercholesterolemia, unspecified; I10 Essential (primary) hypertension; H40.9 Unspecified glaucoma

== ENCOUNTER 2017-03-06 06:46 | Inpatient (IN) | payer MEDICARE, OTHER ==
[2017-03-04 12:24] LABS: BASOPHILS 0.3 % (0-2); EOSINOPHILS 3.2 % (0-7); HEMATOCRIT 39.8 % (42.0-54.0); HEMOGLOBIN 13.8 g/dL (13.5-17.5); IMMATURE GRANULOCYTES 0.4 % (0-5); LYMPHOCYTES 9.2 % (15-50); MCHC 34.7 g/dL (31.0-37.0); MEAN PLATELET VOLUME 9.9 fL (7.4-10.4); MONOCYTES 9.6 % (2-11); NEUTROPHILS 77.3 % (40-80); RBC 3.94 10x6/uL (4.20-6.10); RDW 15.7 % (11.5-14.5)
[2017-03-04 12:27] LABS: PLATELET COUNT 193 10x3/uL (130-400)
[2017-03-04 12:39] LABS: CALC OSMOLALITY 282 mosm/kg (275-300); CALCIUM 8.8 mg/dL (8.5-10.1); CARBON DIOXIDE 26.5 mmol/L (21.0-32.0); CHLORIDE - SERUM 104 mmol/L (98-107); CREATININE - SERUM 0.7 mg/dL (0.6-1.3); GLUCOSE 89 mg/dL (74-106); POTASSIUM - SERUM 3.6 mmol/L (3.5-5.1); SODIUM 141 mmol/L (136-145); UREA NITROGEN 21 mg/dL (7-18); eGFR NON AFRICAN AMERICAN > 90 mL/min (90-120)
[2017-03-04 12:45] LABS: INR 0.87 (0.85-1.17); PROTIME 11.6 SECONDS (11.6-15.0)
[~2017-03-06] VITALS: Ht 170.2 cm; Wt 76.7 kg
[~2017-03-06 06:46] MED LIST changes: +FLOMAX0.4 MG PO; +RESTORIL15 MG PO
[2017-03-06 09:34] VITALS: BP 143/73; BMI 26.5
[2017-03-06 16:35] VITALS: BP 114/61; BMI 26.5
--- NOTE | 2017-03-06 20:00 | NUR ---
PATIENT RESTING IN BED WITH FAMILY AT BEDSIDE AND DENIES NEEDS AT THIS TIME. BED IN LOWEST POSITION AND CALL LIGHT WITHIN REACH. ENCOURAGED THE PATIENT TO CALL IF HE HAS FURTHER NEEDS.
[2017-03-06 22:49] VITALS: BP 121/58
[2017-03-07 07:17] LABS: BASOPHILS 0.2 % (0-2); EOSINOPHILS 0 % (0-7); HEMATOCRIT 34.2 % (42.0-54.0); HEMOGLOBIN 11.7 g/dL (13.5-17.5); IMMATURE GRANULOCYTES 0.2 % (0-5); LYMPHOCYTES 2.9 % (15-50); MCHC 34.2 g/dL (31.0-37.0); MCV 102.4 fL (80.0-100.0); MEAN PLATELET VOLUME 9.8 fL (7.4-10.4); MONOCYTES 5.9 % (2-11); NEUTROPHILS 90.8 % (40-80); PLATELET COUNT 162 10x3/uL (130-400); RBC 3.34 10x6/uL (4.20-6.10); RDW 15.2 % (11.5-14.5); WBC 6.6 10x3/uL (4.8-10.8)
[2017-03-07 07:42] LABS: CALC OSMOLALITY 285 mosm/kg (275-300); CARBON DIOXIDE 27.3 mmol/L (21.0-32.0); CHLORIDE - SERUM 106 mmol/L (98-107); CREATININE - SERUM 0.8 mg/dL (0.6-1.3); GLUCOSE 118 mg/dL (74-106); SODIUM 142 mmol/L (136-145); UREA NITROGEN 17 mg/dL (7-18); eGFR NON AFRICAN AMERICAN > 90 mL/min (90-120)
[2017-03-07 07:58] VITALS: BP 110/59
--- NOTE | 2017-03-07 08:16 | NUR ---
PT SEEN AND ASSESSED. NO COMPLAINTS AT PRESENT-STATES EPIDURAL HELPS NEEDED. ABLE TO MOVE TOES BILAT. DRESSING TO ABD CLEAN DRY AND INTACT. CINTIA X 1 NOTED. MSUA NOTED. FAMILY AT BEDSIDE. CALL LIGHT IN REACH
[2017-03-07 12:36] VITALS: BP 112/60
--- NOTE | 2017-03-07 13:05 | NUR ---
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 PATIENT STATED HE LIVES ALONE BUT HIS DAUGHTERS WILL SWITCH OFF STAYING WITH HIM. PATIENT HAS 7 STEPS W/RAILS TO ENTER HOME AND NO STAIRS ONCE INSIDE. PATIENT STATED HE IS INDEPENDENT WITH HIS CARE AND HAS A CANE W/3PRONGS AND A GRAB BAR IN HIS BATHROOM. PATIENTS PCP IS DR. LEMUS AND PHARMACY IS [facility]. PATIENT SIGNED THE NAM FORM FOR [facility] IF NEEDED AT DISCHARGE. CM WILL CONTINUE TO FOLLOW PATIENT WITH D/C NEEDS AND PLANS. PCP DR. MARIAH NIETO [facility]- [phone] LEÓN LEE (DAUGHTER) [phone] [facility] (IF NEEDED) [phone] Business Practices Officer: Misti Jenkins Is the patient Alert and Oriented? Yes 0 * How many steps to enter\exit or inside your home? 7 W/RAILS 0 * PCP DR. LEMUS 0 * Pharmacy [facility] 0 * Preadmission Environment Home Alone 0 * ADLs Independent 0 * Equipment Cane 0 * Other Equipment GRAB BAR IN BATH AREA 0 * List name and contact numbers for known caregivers / representatives who currently or will assist patient after discharge: LEÓN LEE (DAUGHTER) [phone] 0 * Community resources currently utilized None 0 * Additional services required to return to the preadmission environment? Yes 0 * Can the patient safely return to the preadmission environment? Yes 0 * Has this patient been hospitalized within the prior 30 days at any hospital? No 0 Grand Total: 0
[2017-03-07 13:10] LABS: HEMATOCRIT 33.4 % (42.0-54.0); HEMOGLOBIN 11.4 g/dL (13.5-17.5)
[2017-03-07 14:19] VITALS: Ht 170.2 cm; Wt 76.7 kg
--- NOTE | 2017-03-07 15:03 | NUR ---
PT LYING ON LEFT SIDE FOR COMFORT. WAS ABLE TO SIT IN CHAIR FOR ONLY 15 MIN. PER THERAPY. ENCOURAGED PT TO SIT LONGER NEXT TIME UP. ABLE TO MOVE LOWER EXT WITHOUT DISCOMFORT TO ABD. CINTIA DRAIN STILL WITH BLOODY DRAINAGE. CALL LIGHT IN REACH
[2017-03-07 16:13] VITALS: BP 105/54
[2017-03-07 20:00] VITALS: BP 108/53
[2017-03-08] VITALS: BP 106/54
[2017-03-08 04:00] VITALS: BP 116/49
[2017-03-08 07:10] LABS: BASOPHILS 0.2 % (0-2); EOSINOPHILS 0.7 % (0-7); HEMATOCRIT 30.9 % (42.0-54.0); HEMOGLOBIN 10.4 g/dL (13.5-17.5); IMMATURE GRANULOCYTES 0.2 % (0-5); LYMPHOCYTES 2.7 % (15-50); MCH 34.9 pg (26.0-34.0); MCHC 33.7 g/dL (31.0-37.0); MCV 103.7 fL (80.0-100.0); MEAN PLATELET VOLUME 9.9 fL (7.4-10.4); MONOCYTES 6.1 % (2-11); NEUTROPHILS 90.1 % (40-80); PLATELET COUNT 131 10x3/uL (130-400); RBC 2.98 10x6/uL (4.20-6.10); RDW 14.8 % (11.5-14.5); WBC 8.5 10x3/uL (4.8-10.8)
[2017-03-08 07:17] LABS: CALC OSMOLALITY 274 mosm/kg (275-300); CALCIUM 8.1 mg/dL (8.5-10.1); CARBON DIOXIDE 26.4 mmol/L (21.0-32.0); CHLORIDE - SERUM 105 mmol/L (98-107); CREATININE - SERUM 0.7 mg/dL (0.6-1.3); GLUCOSE 88 mg/dL (74-106); POTASSIUM - SERUM 3.7 mmol/L (3.5-5.1); SODIUM 138 mmol/L (136-145); eGFR NON AFRICAN AMERICAN > 90 mL/min (90-120)
[2017-03-08 07:23] LABS: UREA NITROGEN 12 mg/dL (7-18)
--- NOTE | 2017-03-08 08:15 | NUR ---
PT RESTING IN BED WITH EYES OPEN CALL LIGHT IN REACH WILL MONITER
[2017-03-08 08:42] VITALS: BP 118/53
[2017-03-08 12:19] VITALS: BP 119/58
--- NOTE | 2017-03-08 13:00 | NUR ---
LOCAL TV'S CHANNELS NOT WORKING AT THIS TIME. ATTEMPTED TO FIX THE ISSUE, BUT IT DID NOT WORK. OFFERED TO MOVE THE PATIENTS ROOMS. HE DENIED AT THIS TIME. CALL LIGHT IN REACH AND DAUGHTER AT BEDSIDE. WILL CONTINUE WITH PLAN OF CARE.
[2017-03-08 16:27] VITALS: BP 114/52
--- NOTE | 2017-03-08 17:35 | NUR ---
PT RESTING IN BED WITH EYES OPEN CALL LIGHT IN REACH NO PROBLEMS WILL MONITER
--- NOTE | 2017-03-08 19:49 | NUR ---
PATIENT RESTING IN BED WITH DAUGHTER AT BEDSIDE AND STATES HIS PAIN IS 3/10. PATIENT DENIES NEEDS AT THIS TIME. BED IN LOWEST POSITION AND CALL LIGHT WITHIN REACH. ENCOURAGED THE PATIENT TO CALL IF HE HAS NEEDS.
[2017-03-08 20:00] VITALS: BP 117/55
[2017-03-09] VITALS: BP 163/58
[2017-03-09 04:00] VITALS: BP 118/60
[2017-03-09 06:19] LABS: BASOPHILS 0.3 % (0-2); EOSINOPHILS 3.1 % (0-7); HEMATOCRIT 27.5 % (42.0-54.0); HEMOGLOBIN 9.4 g/dL (13.5-17.5); IMMATURE GRANULOCYTES 0.3 % (0-5); LYMPHOCYTES 5.6 % (15-50); MCH 34.9 pg (26.0-34.0); MCHC 34.2 g/dL (31.0-37.0); MCV 102.2 fL (80.0-100.0); MEAN PLATELET VOLUME 10.5 fL (7.4-10.4); NEUTROPHILS 84.7 % (40-80); PLATELET COUNT 137 10x3/uL (130-400); RBC 2.69 10x6/uL (4.20-6.10); RDW 14.3 % (11.5-14.5); WBC 7.5 10x3/uL (4.8-10.8)
[2017-03-09 06:39] LABS: CALC OSMOLALITY 273 mosm/kg (275-300); CALCIUM 7.9 mg/dL (8.5-10.1); CARBON DIOXIDE 26.6 mmol/L (21.0-32.0); CHLORIDE - SERUM 106 mmol/L (98-107); CREATININE - SERUM 0.7 mg/dL (0.6-1.3); GLUCOSE 96 mg/dL (74-106); POTASSIUM - SERUM 3.4 mmol/L (3.5-5.1); SODIUM 138 mmol/L (136-145); eGFR NON AFRICAN AMERICAN > 90 mL/min (90-120)
[2017-03-09 06:40] LABS: UREA NITROGEN 7 mg/dL (7-18)
--- NOTE | 2017-03-09 07:00 | NUR ---
PT REC'D FROM SUKHJINDER HOFF. RESTING IN BED WITH DAUGHTER AT BEDSIDE. AAOX4. NO COMPLAINTS OF PAIN. EPIDURAL IN PLACE CURRENTLY FOR PAIN CONTROL. REGULAR HEART RATE AND RHYTHM. LUNG SOUNDS CLEAR AND EQUAL BILAT. DRESSING TO ABD CDI. COLOSTOMY TO LUQ WITH APPROXIMATELY 25CC'S OF LIQUID BROWN OUTPUT IN COLLECTION BAG. DRESSING TO ANUS CDI. BED LOW, CALL LIGHT IN REACH, DENIES NEEDS. CPOC.
--- NOTE | 2017-03-09 09:10 | NUR ---
MORNING MEDS PASSED AT THIS TIME. HEPARIN HELD DUE TO EPIDURAL STILL BEING IN PLACE. WILL RESUME ONCE EPIDURAL HAS BEEN PULLED. BED LOW, CALL LIGHT IN REACH, DENIES NEEDS. CPOC.
[2017-03-09 09:12] VITALS: BP 127/59
--- NOTE | 2017-03-09 10:26 | NUR ---
PT IN BED, WITH EYES CLOSED, RESP EVEN AND UNLABORED, FAMILY AT BEDSIDE, CALL LIGHT IN REACH, NAD NOTED, WILL CONTINUE TO MONITOR.
--- NOTE | 2017-03-09 11:30 | NUR ---
DR. ESTRADA AT BEDSIDE. EPIDURAL PULLED BY DR. ESTRADA AT THIS TIME. WILL PULL VIGIL IN APPROXIMATELY 6 HOURS. DILAUDID VAN HELPER INITIATED AT THIS TIME. CURRENT PAIN LEVEL 2/10 IN ABD. WILL REASSESS. BED LOW, CALL LIGHT IN REACH, DENIES NEEDS. CPOC.
[2017-03-09 12:31] VITALS: BP 109/55
--- NOTE | 2017-03-09 13:58 | NUR ---
PT RESTING IN BED WITH DAUGHTER AT BEDSIDE. NO COMPLAINTS. STATES PAIN IS WELL CONTROLLED. BED LOW, CALL LIGHT IN REACH, DENIES NEEDS. CPOC.
--- NOTE | 2017-03-09 15:22 | NUR ---
PT RESTING IN BED WATCHING TV. DAUGHTER AT BEDSIDE. UPDATE PROVIDED REGARDING VIGIL REMOVAL AT APPROXIMATELY 1730. EDUCATION PROVIDED ON INCENTIVE SPIROMETER. PT ABLE TO PULL 1250 AND RETURN DEMONSTRATION. INSTRUCTED PT TO DO THIS AT LEAST 5 TIMES EVERY HOUR WHILE AWAKE. NO QUESTIONS OR CONCERNS VOICED AT THIS TIME. BED LOW, CALL LIGHT IN REACH, DENIES NEEDS. CPOC.
[2017-03-09 16:33] VITALS: BP 148/61
--- NOTE | 2017-03-09 16:55 | NUR ---
SC HEPARIN ADMINISTERED PER OCT. PT TOLERATED WELL. BED LOW, CALL LIGHT IN REACH, DENIES NEEDS. CPOC.
--- NOTE | 2017-03-09 19:40 | NUR ---
PATIENT RESTING IN BED WITH DAUGHTER AT BEDSIDE AND DENIES NEEDS AT THIS TIME. BED IN LOWEST POSITION AND CALL LIGHT WITHIN REACH. ENCOURAGED THE PATIENT TO CALL IF HE HAS NEEDS.
[2017-03-09 20:00] VITALS: BP 120/55
--- NOTE | 2017-03-10 02:00 | NUR ---
PT IN BED WITH NO DISTRESS. RESPIRATIONS EVEN AND UNLABORED. SIDE RAILS X 2. BED IS LOW. CALL LIGHT IN REACH.
[2017-03-10 04:00] VITALS: BP 135/61
--- NOTE | 2017-03-10 04:37 | NUR ---
PATIENT C/O NOT BEING ABLE TO URINATE. BLADDER SCAN REVEALED 432
[2017-03-10 05:57] LABS: BASOPHILS 0.3 % (0-2); EOSINOPHILS 3.9 % (0-7); HEMATOCRIT 28.3 % (42.0-54.0); HEMOGLOBIN 9.9 g/dL (13.5-17.5); IMMATURE GRANULOCYTES 0.4 % (0-5); LYMPHOCYTES 3.5 % (15-50); MEAN PLATELET VOLUME 10.1 fL (7.4-10.4); MONOCYTES 10.6 % (2-11); NEUTROPHILS 81.3 % (40-80); PLATELET COUNT 150 10x3/uL (130-400); RBC 2.83 10x6/uL (4.20-6.10); RDW 14.1 % (11.5-14.5); WBC 7.2 10x3/uL (4.8-10.8)
[2017-03-10 06:13] LABS: CARBON DIOXIDE 29.3 mmol/L (21.0-32.0); CHLORIDE - SERUM 103 mmol/L (98-107); CREATININE - SERUM 0.6 mg/dL (0.6-1.3); GLUCOSE 109 mg/dL (74-106); SODIUM 138 mmol/L (136-145); eGFR NON AFRICAN AMERICAN > 90 mL/min (90-120)
[2017-03-10 06:34] LABS: CALC OSMOLALITY 273 mosm/kg (275-300); UREA NITROGEN 3 mg/dL (7-18)
--- NOTE | 2017-03-10 07:38 | NUR ---
PATIENT IS AWAKE, ALERT, AND ORIENTED X4. PATIENT VISITING WITH HIS FAMILY AT THE BEDSIDE. PATIENT DENIES ANY NEEDS AT PRESENT TIME. CALL LIGHT IN PATIENT'S REACH. WILL MONITOR PATIENT.
[2017-03-10 09:13] VITALS: BP 139/66
[2017-03-10 13:03] VITALS: BP 134/69
--- NOTE | 2017-03-10 14:06 | NUR ---
PATIENT SITTING UP ON THE SIDE OF THE BED. DAUGHTER AT PATIENT'S BEDSIDE. ASSISTED PATIENT BACK INTO HIS BED. PATIENT TURNED AND REPOSITIONED FOR COMFORT. PATIENT DENEIS ANY FURTHER NEEDS. CALL LIGHT IN PATIENT'S REACH. WILL MONITOR.
--- NOTE | 2017-03-10 15:26 | NUR ---
NUTRITION MONITORING & EVAL CHART REVIEWED, PT VISIT. TOLERATING REG DIET WITH 75% INTAKE RECENT MEALS. WILL CONTINUE TO PROVIDE DIET, MONITOR PO INTAKE. RD FOLLOWING
--- NOTE | 2017-03-10 19:30 | NUR ---
PATIENT RESTING IN BED WITH DAUGHTER AT BEDSIDE AND STATES THAT HE HAS NOT URINATED SINCE THIS MORNING. I INFORMED THE PATIENT THAT I COULD DO ANOTHER IN AND OUT CATH IF NEEDED. THE PATIENT WANTS TO HOLD OFF ON THE I&O CATH FOR NOW.
[2017-03-10 20:00] VITALS: BP 146/67
--- NOTE | 2017-03-10 23:34 | NUR ---
PATIENT HAS VOIDED X2 DURING THIS SHIFT
[2017-03-11 04:03] VITALS: BP 143/68
[2017-03-11 08:33] VITALS: BP 136/70
--- NOTE | 2017-03-11 08:33 | NUR ---
PATIENT RESTING IN HIS BED. DAUGHTER AT PATIENT'S BEDSIDE. PATIENT REQUESTS PAIN MEDICINE. PATIENT RATES HIS PAIN LEVEL A "5" ON A 0-10 SCALE. PRN DILAUDID 1 MG IV GIVEN TO PATIENT. PATIENT TOLERATED WELL. CALL LIGHT IN PATIENT'S REACH. WILL MONITOR.
[2017-03-11 13:00] VITALS: BP 137/72
[2017-03-11 16:14] VITALS: BP 122/66
[2017-03-11 20:00] VITALS: BP 117/58
--- NOTE | 2017-03-11 20:40 | NUR ---
AWAKE,ALERT,ORIENTED. IV INFUSING TO RIGHT ARM WITHOUT REDNESS OR EDEMA NOTED. CINTIA DRAIN INTACT TO RIGHT ABD AND DRAINING. COLOSTOMY INTACT WITH SCANT AMT FECES NOTED. DAUGHTER AT BEDSIDE.
--- NOTE | 2017-03-12 02:00 | NUR ---
PT IN BED WITH NO DISTRESS. RESPIRATIONS ARE EVEN AND UNLABORED. SIDE RAILS X 2. BED IS LOW. CALL LIGHT IN REACH.
[2017-03-12 03:47] VITALS: BP 135/68
--- NOTE | 2017-03-12 05:29 | NUR ---
RESTING QUIETLY. NO DISTRESS NOTED. CL IN REACH.
--- NOTE | 2017-03-12 07:35 | NUR ---
PATIENT RECEIVED SITTING UP IN CHAIR AT BEDSIDE. NO SIGNS OF DISTRESS NOTED. FAMILY PRESENT. CALL LIGHT IN REACH.
[2017-03-12 08:29] VITALS: BP 136/68
--- NOTE | 2017-03-12 10:19 | NUR ---
SITTING UP IN CHAIR ALERT. NO SIGNS OF DISTRESS NOTED. SCHEDULED MEDICATION ADMINISTERED WELL PRN NORCO. FAMILY AT BEDSIDE. DENIES NEEDS. CALL LIGHT IN REACH.
--- NOTE | 2017-03-12 11:10 | NUR ---
PATIENT SITTING UP IN CHAIR ALERT. NO SIGNS OF DISTRESS NOTED. DRESSINGS CHANGED PER ORDER. INCISION TO ABD WITH 15 KRISTAL INTACT. CLEANSED WITH WOUND CLEANSER. NO REDNESS OR DRAINAGE NOTED TO SITE. CLEAN DRESSING APPLIED. DRESSING TO BUTTOCK CHANGED. SUTURES NOTED TO BE INTACT. NEW ABD PAD APPLIED AND SECURED WITH TAPE. TAMMI DRAIN D/C PER ORDER. 30CC BLOODY DRAINAGE REMAINED IN BULB. SITE COVERED WITH GAUZE AND TAPE.
[2017-03-12 13:06] VITALS: BP 144/68
--- NOTE | 2017-03-12 16:20 | NUR ---
PATIENT SITTING UP IN CHAIR ALERT NO SIGNS OF DISTRESS NOTED. FAMILY PRESENT. CALL LIGHT IN REACH.
[2017-03-12 16:29] VITALS: BP 122/55
[2017-03-12 20:00] VITALS: BP 129/61
[2017-03-13] VITALS: BP 123/76
--- NOTE | 2017-03-13 03:45 | NUR ---
BLADDER SCAN REVEALED 753ML. PATIENT STATED THAT HE WOULD LIKE TO WAIT A LITTLE LONGER BEFORE WE IN AND OUT CATH.
--- NOTE | 2017-03-13 07:35 | NUR ---
PATIENT RECEIVED SITTING UP IN CHAIR AT BEDSIDE. NO SIGNS OF DISTRESS NOTED. FAMILY PRESENT. DENIES NEEDS. CALL LIGHT IN REACH.
--- NOTE | 2017-03-13 09:13 | NUR ---
PATIENT SITTING UP IN CHAIR ALERT. NO SIGNS OF DISTRESS NOTED. SCHEDULED MEDICATION ADMINISTERED. FAMILY AT BEDSIDE. DENIES NEEDS. CALL LIGHT IN REACH.
[2017-03-13 09:15] VITALS: BP 101/47
--- NOTE | 2017-03-13 10:16 | NUR ---
PATIENT UP AMBULATING IN HALLWAY WITH ASSIST FROM FAMILY AND SUKHJINDER LUCIA. NO SIGNS OF DISTRESS NOTED.
--- NOTE | 2017-03-13 12:00 | NUR ---
PATIENT SITTING UP IN CHAIR ALERT. STATES HAS NOT BEEN ABLE TO VOID SINCE LAST NIGHT. BLADDER SCAN SHOWS 800ML. WILL PAGE PHYSICIAN AND WAIT FOR CALLBACK.
[2017-03-13 12:57] VITALS: BP 108/46
--- NOTE | 2017-03-13 14:36 | NUR ---
NUTRITION MONITORING & EVAL CHART REVIEWED. REG DIET WITH 50% INTAKE RECENT MEALS. WILL CONTINUE TO PROVIDE DIET, MONITOR PO INTAKE. RD FOLLOWING
[2017-03-13 15:45] VITALS: BP 115/76
--- NOTE | 2017-03-13 15:55 | NUR ---
FAMILY REPORTS PATIENT ABLE TO VOID 300CC INTO URINAL
--- NOTE | 2017-03-13 19:20 | NUR ---
PATIENT RESTING IN BED WITH DAUGHTER AT BEDSIDE. PATIENT DENIES NEEDS AT THIS TIME. BED IN LOWEST POSITION AND CALL LIGHT WITHIN REACH. ENCOUARAGED THE PATIENT TO CALL IF HE HAS NEEDS.
[2017-03-13 20:00] VITALS: BP 140/62
[2017-03-14] VITALS: BP 111/56
[2017-03-14 04:00] VITALS: BP 110/71
--- NOTE | 2017-03-14 04:55 | NUR ---
IN AND OUT CATH 600CC
[2017-03-14 05:31] LABS: CARBON DIOXIDE 25.2 mmol/L (21.0-32.0); CREATININE - SERUM 3.6 mg/dL (0.6-1.3); PHOSPHOROUS 3.3 mg/dL (2.5-4.9); POTASSIUM - SERUM 3.2 mmol/L (3.5-5.1)
[2017-03-14 05:46] LABS: HEMATOCRIT 27.1 % (42.0-54.0); HEMOGLOBIN 9.6 g/dL (13.5-17.5); LYMPHOCYTES 2.4 % (15-50); MCH 34.2 pg (26.0-34.0); MCHC 35.4 g/dL (31.0-37.0); MCV 96.4 fL (80.0-100.0); MEAN PLATELET VOLUME 8.4 fL (7.4-10.4); NEUTROPHILS 86.5 % (40-80); RBC 2.81 10x6/uL (4.20-6.10); RDW 14.7 % (11.5-14.5); WBC 15.3 10x3/uL (4.8-10.8)
[2017-03-14 05:49] LABS: PLATELET COUNT 299 10x3/uL (130-400)
--- NOTE | 2017-03-14 07:45 | NUR ---
REPORT RECIEVED ASSUMED CARE. PATIENT IN BED WITH IV INTACT. NO COMPLAINTS AT THIS TIME. CALL LIGHT WITHIN REACH.
[2017-03-14 08:32] VITALS: BP 121/50
--- NOTE | 2017-03-14 10:50 | NUR ---
DRESSING TO BUTTOCKS CHANGED AT THIS TIME. INCISION CLEANED WITH WOUND FIBER TECHNOLOGIST. SUTURES CDI. NEW GAUZE AND ABD PAD PLACED. TOLERATED WITH NO PAIN. IV INTACT. CALL LIGHT WITHIN REACH.
[2017-03-14 12:38] VITALS: BP 118/56; BP 177/87
[2017-03-14 16:12] VITALS: BP 150/70
--- NOTE | 2017-03-14 18:55 | NUR ---
PATIENT IN BED WITH IV INTACT. NO COMPLAINTS. FINISHED MAG CITRATE. FAMILY AT BEDSIDE. CALL LIGHT WITHIN REACH.
[2017-03-14 20:00] VITALS: BP 111/54
--- NOTE | 2017-03-14 21:12 | NUR ---
500 OUT OF COLOSTOMY
--- NOTE | 2017-03-14 22:25 | NUR ---
CHANGED DRESSING ON PT'S BUTTOCK
--- NOTE | 2017-03-14 22:25 | NUR ---
200 OUT OF PT'S COLOSTOMY
--- NOTE | 2017-03-14 23:00 | NUR ---
100 ML OUT OF COLOSTOMY
--- NOTE | 2017-03-14 23:35 | NUR ---
175 ML OUT OF COLOSTOMY
[2017-03-15] VITALS: BP 164/69
[2017-03-15 04:00] VITALS: BP 116/51
[2017-03-15 06:44] LABS: BASOPHILS 0.2 % (0-2); EOSINOPHILS 2.2 % (0-7); HEMATOCRIT 25.2 % (42.0-54.0); HEMOGLOBIN 8.8 g/dL (13.5-17.5); LYMPHOCYTES 2.3 % (15-50); MCH 34.1 pg (26.0-34.0); MCHC 34.9 g/dL (31.0-37.0); MCV 97.7 fL (80.0-100.0); MONOCYTES 7.5 % (2-11); NEUTROPHILS 86.8 % (40-80); PLATELET COUNT 252 10x3/uL (130-400); RBC 2.58 10x6/uL (4.20-6.10); RDW 15.1 % (11.5-14.5); WBC 15.6 10x3/uL (4.8-10.8)
--- NOTE | 2017-03-15 07:00 | NUR ---
REPORT RECIEVED ASSUMED CARE. PATIENT IN BED WITH IV INTACT. NO COMPLAINTS. CALL LIGHT WITHIN REACH.
[2017-03-15 07:05] LABS: CALCIUM 7.9 mg/dL (8.5-10.1); CARBON DIOXIDE 31.2 mmol/L (21.0-32.0); CHLORIDE - SERUM 102 mmol/L (98-107); GLUCOSE 104 mg/dL (74-106); POTASSIUM - SERUM 3.2 mmol/L (3.5-5.1); SODIUM 137 mmol/L (136-145); eGFR NON AFRICAN AMERICAN 88 mL/min (90-120)
[2017-03-15 07:06] LABS: CALC OSMOLALITY 272 mosm/kg (275-300); CREATININE - SERUM 0.9 mg/dL (0.6-1.3); UREA NITROGEN 11 mg/dL (7-18)
[2017-03-15 07:48] VITALS: BP 125/60
--- NOTE | 2017-03-15 08:00 | NUR ---
ASSESSMENT COMPLETE, VS STABLEW. IV INTACT. NO COMPLAINTS. VIGIL INTACT. FAMILY AT BEDSIDE. CALL LIGHT WITHIN REACH.
--- NOTE | 2017-03-15 12:00 | NUR ---
PATIENT DISCHARGE INSTRUCTIONS GIVEN AT THIS TIME. VERBALIZED UNDERSTANDING. FAMILY AT BEDSIDE. PRESCRIPTIONS GIVEN TO DAUGHTER. DRESSING TO BUTTOCKS CHANGED. SUTURES CLEAN AND DRY. IV REMOVED WITH CATH INTACT. CALL LIGHT WITHIN REACH. AWAITING FOR DC.
== END 2017-03-15 13:00 | disposition home or self-care (01) | DRG 330 ==
LOC: D.SDCHOLD 06:46 → D.MS 06:46 → D.SDCHOLD 08:45 → D.MS 16:04
PROVIDERS: Anesthesiology; ADMIT Surgery
PROC: 0DBN0ZZ Excision of Sigmoid Colon, Open Approach (ICD-10-PCS; 2017-03-06)
PROC: 0DBQ0ZZ Excision of Anus, Open Approach (ICD-10-PCS; 2017-03-06)
PROC: 0DTP0ZZ Resection of Rectum, Open Approach (ICD-10-PCS; principal; 2017-03-06 11:00)
PROC: 0T9B70Z Drainage of Bladder with Drainage Device, Via Natural or Artificial Opening (ICD-10-PCS; 2017-03-14)
DX: C21.8 Malignant neoplasm of overlapping sites of rectum, anus and anal canal (principal); D62 Acute posthemorrhagic anemia; N17.9 Acute kidney failure, unspecified; I10 Essential (primary) hypertension; E11.9 Type 2 diabetes mellitus without complications; N40.0 Benign prostatic hyperplasia without lower urinary tract symptoms; R33.8 Other retention of urine

== ENCOUNTER → 2017-03-28 18:30 | Outpatient (CLI) | payer MEDICARE, OTHER ==
[2017-03-07 14:19] VITALS: BMI 26.4
== END | disposition home or self-care (01) ==
LOC: D.LABREF 18:30
DX: L02.211 Cutaneous abscess of abdominal wall (principal)

== ENCOUNTER → 2017-04-09 09:40 | Outpatient (CLI) | payer MEDICARE, OTHER ==
[2017-03-07 14:19] VITALS: BMI 26.4
[~2017-04-09 09:40] MED LIST changes: +CIPRO500 MG PO; +COLACE100 MG PO; +PROSCAR5 MG PO
== END | disposition home or self-care (01) ==
LOC: D.CT 09:40
DX: T81.4XXA Infection following a procedure, initial encounter (principal)

== ENCOUNTER 2017-04-10 06:36 | Outpatient (CLI) | payer MEDICARE, OTHER ==
[~2017-04-10] VITALS: Ht 170.2 cm; Wt 72.7 kg
[~2017-04-10 06:36] MED LIST changes: -CIPRO500 MG PO; -COLACE100 MG PO; -PROSCAR5 MG PO
[2017-04-10] MEDS ORDERED: PROSCAR5 MG PO (07:50)
[2017-04-10] MEDS ORDERED: CIPRO500 MG PO (07:50)
[2017-04-10] MEDS ORDERED: FLAGYL500 MG PO (07:50)
[2017-04-10] MEDS ORDERED: COLACE100 MG PO (07:51)
[2017-04-10 07:58] VITALS: BP 99/55; BMI 25.1
[2017-04-10 08:12] LABS: BASOPHILS 0.3 % (0-2); EOSINOPHILS 2.5 % (0-7); HEMATOCRIT 27.8 % (42.0-54.0); HEMOGLOBIN 9.1 g/dL (13.5-17.5); IMMATURE GRANULOCYTES 1.4 % (0-5); MCH 29.9 pg (26.0-34.0); MCHC 32.7 g/dL (31.0-37.0); MCV 91.4 fL (80.0-100.0); MEAN PLATELET VOLUME 8.7 fL (7.4-10.4); MONOCYTES 11.2 % (2-11); NEUTROPHILS 78.6 % (40-80); RBC 3.04 10x6/uL (4.20-6.10); RDW 17.6 % (11.5-14.5); WBC 9.4 10x3/uL (4.8-10.8)
[2017-04-10 08:14] LABS: PLATELET COUNT 316 10x3/uL (130-400)
[2017-04-10 08:19] LABS: CALC OSMOLALITY 276 mosm/kg (275-300); CALCIUM 8.5 mg/dL (8.5-10.1); CARBON DIOXIDE 30.3 mmol/L (21.0-32.0); CHLORIDE - SERUM 102 mmol/L (98-107); CREATININE - SERUM 0.7 mg/dL (0.6-1.3); GLUCOSE 90 mg/dL (74-106); POTASSIUM - SERUM 4.1 mmol/L (3.5-5.1); SODIUM 139 mmol/L (136-145); UREA NITROGEN 11 mg/dL (7-18); eGFR NON AFRICAN AMERICAN > 90 mL/min (90-120)
[2017-04-10 08:26] LABS: APTT 27.4 SECONDS (22.8-39.4); INR 1.15 (0.85-1.17); PROTIME 14.6 SECONDS (11.6-15.0)
--- NOTE | 2017-04-10 14:33 | NUR ---
1130 VITALS PER MD ORDER-RECORDED ON FREQUENT VITALS FORM IN CHART.
[2017-04-10 16:21] VITALS: BP 103/57; Ht 170.2 cm; Wt 72.7 kg
--- NOTE | 2017-04-10 16:42 | NUR ---
RECEIVED TO ROOM 2205 VIA WC FROM OUTPATIENT. A/O X3. FAMILY AT BEDSIDE. DRAIN TO LOWER BACK JUST ABOVE ILIAC CREST PATNET WITH BLOODY DRAINAGE. DENIES NEEDS. HAS NOT VOIDED POST DRAIN PLACEMENT. WILL MONITOR.
--- NOTE | 2017-04-10 19:15 | NUR ---
RESTING QUIETLY IN BED. DENIES NEEDS. NO CHANGES NOTED.
[2017-04-10 20:00] VITALS: BP 108/59
--- NOTE | 2017-04-10 20:16 | NUR ---
PAGED DR. WERNER PER PATIENT'S REQUEST IN REGARDS TO RESTARTING PATIENT'S HOME MEDS.
--- NOTE | 2017-04-10 20:20 | NUR ---
SPOKE WITH DR. WERNER WHO RESTARTED PATIENT'S HOME MEDICATIONS AND ORDERED A REGULAR DIET.
[2017-04-10 23:37] VITALS: BP 97/57
--- NOTE | 2017-04-11 07:56 | NUR ---
PATIENT IN BED WITH NO COMPLAINTS. DAUGHTER AT BS. EXPRESSED NO NEEDS AT THIS TIME. WILL CONTINUE TO MONITOR. CALL LIGHT WITHIN REACH.
[2017-04-11 09:23] VITALS: BP 108/56
--- NOTE | 2017-04-11 10:34 | NUR ---
CM SPOKE WITH PATIENT AND DAUGHTER (Carlos) TO ASSESS DISCHARGE PLANNING NEEDS. PATIENT WILL BE GOING HOME AND HIS DAUGHTER WILL BE THE ONE TO DRIVE HIM. THE PATIENT LIVES [place] [address] FROM HIS DAUGHTER. PATIENT IS SET UP WITH HOME HEALTH WITH [facility]. PATIENT HAS A WALKER AND A CANE AND DENIES ANY OTHER NEEDS. CM WILL CONTINUE TO FOLLOW AND ASSIST NEEDED. PCP: MARIAH NIETO BY MARY CARLOS ROBLERO (DAUGHTER) [phone]
--- NOTE | 2017-04-11 10:36 | NUR ---
DRAIN CARE AND FLUSHING TAUGHT TO PATIENT AND DAUGHTER BY DENISE SLAUGHTER. QUESTIONS ANSWERED AND FLUSHES GIVEN. CALL LIGHT WITHIN REACH.
--- NOTE | 2017-04-11 10:50 | NUR ---
PATIENT RECIEVED DISCHARGE INSTRUCTIONS. VERBALIZED UNDERSTANDING. NO QUESTIONS AT THIS TIME. DAUGHTER AT BEDSIDE. CALL LIGHT WITHIN REACH.
[2017-04-14 11:13] LABS: FUNGUS STAIN Final report (())
== END 2017-04-11 11:16 | disposition home or self-care (01) ==
LOC: D.CT 06:36 → D.OPS 06:36 → D.CT 09:00 → D.MS 15:58 → D.SDCHOLD 21:02 → D.MS 21:04 → D.OPS 04-11 11:16 → D.CT 04-14 14:00
PROVIDERS: Specialist; Surgery
DX: T81.4XXA Infection following a procedure, initial encounter (principal); L02.215 Cutaneous abscess of perineum; C21.1 Malignant neoplasm of anal canal; Z01.812 Encounter for preprocedural laboratory examination

== ENCOUNTER 2017-04-17 07:09 | Outpatient (CLI) | payer MEDICARE, OTHER ==
[~2017-04-17] VITALS: Ht 170.2 cm; Wt 74.1 kg
--- NOTE | ~2017-04-17 | HEMODYNAMI ---
PATIENT:MARY ABURTO MEDICAL RECORD: [id number] : 41 LOCATION:[facility] ADMISSION DATE: 04/17/17 Generatedon:04/17/201710:37 Patient name: MARY ABURTO Patient #: [id number] SSN: : Date of study: 04/17/2017 Page: Of Hemodynamic Procedure Report Patient Data Patient Demographics Procedure consent was obtained First Name: MARY Gender: Male Last Name: LAMONTE : 1945 [facility] Initial: REI Age: 72 year(s) Patient #: [id number] Race: Unknown Additional ID: [id number] Contact details [address]: [address] [place] [address] [address]IVE State: [place] City: [place] Zip code: [address] Admission Admission Data Admission Date: 04/17/2017 Admission Time: 7:09 Procedure Procedure Types Cath Procedure Peripheral Cath Diagnostic Procedure Abscess Abscessogram Procedure Description Procedure Date Procedure Date: 04/17/2017 Procedure Start Time: 10:17 Procedure Staff Name Function Charlie Faustin MD Performing Physician Yuliana Landon RT Scrub Bj Simpson RT Monitor Procedure Data Cath Procedure Fluoroscopy Diagnostic fluoroscopy Total fluoroscopy Time: 0.7 time: 0.7 min min Diagnostic fluoroscopy Total fluoroscopy dose: 27 dose: 27 mGy mGy Contrast Material Contrast Material Type Amount (ml) Isovue 300 10 Hemodynamics Rest Pre Cath Intra NCS Post Cath Procedure Log Time Note 10:07:27 Bj Simpson RT (R) (CV) sent for patient. Start room use. 10:07:35 Time tracking: Regular hours 10:07:51 Patient received from Outpatients to IR Alert and oriented. Tansferred to table in Prone position. 10:08:08 Signed procedure consent form obtained from patient. 10:08:12 - 10:08:13 Pre-procedure instructions explained to patient. 10:08:13 Pre-op teaching completed and patient verbalized understanding. 10:08:17 Use device set IR Diagnostic 10:08:19 Sterile Angiographic Pack opened to sterile field. 10:08:19 Bag Decanter opened to sterile field. 10:08:30 Family in patients room. 10:08:36 Patient NPO since Midnight. 10:08:40 Is the patient allergic to Iodine/contrast media? N/A. 10:08:42 Is patient on blood thinner?No 10:08:50 Patient pain scale 0/10 no pain. 10:09:00 Right abdomen area was prepped with chlora-prep and draped in sterile fashion 10:16:59 Physician arrived 10:16:59 --------ALL STOP TIME OUT------ 10:17:00 Final Timeout: patient, procedure, and site verified with staff and physician. All members of the team are in agreement. 10:17:13 Right abdomen site verified by team. 10:17:39 Sedation plan: Local Anesthetic Lidocaine 10:17:52 Procedure started. 10:17:52 Full Disclosure recording started 10:17:58 Local anesthetic to Abdominal area with Lidocaine 1% by Charlie Faustin MD.INITIAL ACCESS ONLY 10:32:49 drain removed 10:33:47 Procedure ended.(Physican Out) 10:34:09 Fluoroscopy time 00.70 minutes. 10:34:13 Fluoroscopy dose: 27 mGy 10:34:13 Flurop Dose total: 27 10:34:17 Contrast amount:Isovue 300 10ml. 10:34:19 Sharps counted by scrub and verified by R.N. 10:35:16 Insertion/operative site no bleeding no hematoma. 10:35:22 Post-op/insertion site Right Abdominal area dressed using a 4 x 4 and Tegaderm. 10:35:29 Post Abdominal area:stable 10:35:35 Post procedure instruction explained to patient.Patient verbalizes understanding. 10:35:36 Procedure and supply charges have been captured, reviewed, submitted an d are correct. 10:35:38 Report given to Outpatients. 10:35:42 Patient transfered to Outpatients with Bed. Device Usage Item Name Manufacture Quantity Catalog Hospital Part Current Minimal Lot# / Number Charge Number Stock Stock Serial# Code Sterile [place] 1 [id number] Angiographic Health Pack Bag Decanter Microtek 1 [id number] [employer] Signature Audit [place] Stage Time Signature Unsigned Intra-Procedure 04/17/2017 Bj 10:37:13 AM Calvin RT (R) (CV) Signatures Monitor : Bj Signature : Calvin RT Date : Time : [address] [address]
[~2017-04-17 07:09] MED LIST changes: +CIPRO500 MG PO; +COLACE100 MG PO; +PROSCAR5 MG PO
[2017-04-17] MEDS ORDERED: LINEZOLID600 MG PO (08:11)
[2017-04-17] MEDS ORDERED: VIBRAMYCIN50 MG PO (08:11)
[2017-04-17 08:13] VITALS: BP 132/63; Ht 170.2 cm; Wt 74.1 kg
[2017-04-17 09:11] LABS: BASOPHILS 0.4 % (0-2); EOSINOPHILS 2.8 % (0-7); HEMATOCRIT 27.9 % (42.0-54.0); HEMOGLOBIN 9.2 g/dL (13.5-17.5); IMMATURE GRANULOCYTES 0.7 % (0-5); MCH 30.1 pg (26.0-34.0); MCV 91.2 fL (80.0-100.0); MEAN PLATELET VOLUME 8.9 fL (7.4-10.4); MONOCYTES 8.4 % (2-11); NEUTROPHILS 79.7 % (40-80); PLATELET COUNT 281 10x3/uL (130-400); RBC 3.06 10x6/uL (4.20-6.10); WBC 7.1 10x3/uL (4.8-10.8)
[2017-04-17 09:26] LABS: INR 0.99 (0.85-1.17); PROTIME 12.9 SECONDS (11.6-15.0)
[2017-04-17 10:24] LABS: CALC OSMOLALITY 276 mosm/kg (275-300); CALCIUM 8.2 mg/dL (8.5-10.1); CARBON DIOXIDE 25.7 mmol/L (21.0-32.0); CHLORIDE - SERUM 105 mmol/L (98-107); CREATININE - SERUM 0.5 mg/dL (0.6-1.3); GLUCOSE 78 mg/dL (74-106); POTASSIUM - SERUM 4.4 mmol/L (3.5-5.1); SODIUM 140 mmol/L (136-145); UREA NITROGEN 9 mg/dL (7-18); eGFR NON AFRICAN AMERICAN > 90 mL/min (90-120)
--- NOTE | 2017-04-17 11:18 | NUR ---
1100 IV DC WITH CATHER TIP INTACT
== END 2017-04-17 11:20 | disposition home or self-care (01) ==
LOC: D.OPS 07:09 → D.CT 09:30 → D.OPS 09:30 → D.RAD 10:00 → D.OPS 11:20
PROVIDERS: General Practice
DX: K65.1 Peritoneal abscess (principal); Z01.812 Encounter for preprocedural laboratory examination

== ENCOUNTER → 2017-06-16 07:40 | Outpatient (CLI) | payer MEDICARE, OTHER ==
[2017-04-17 08:13] VITALS: BMI 25.6
[~2017-06-16 07:40] MED LIST changes: +HYDROCODON-ACE1 EAC9 PO; +LINEZOLID600 MG PO; +LOMOTIL TABLET1 TAB PO; +VIBRAMYCIN50 MG PO
== END | disposition home or self-care (01) ==
LOC: D.CT 07:40
DX: C20 Malignant neoplasm of rectum (principal); C18.9 Malignant neoplasm of colon, unspecified

== ENCOUNTER 2017-08-14 05:34 | Day surgery (SDC) | payer MEDICARE, OTHER ==
[~2017-08-14] VITALS: Ht 170.2 cm; Wt 70.8 kg
--- NOTE | ~2017-08-14 | OP ---
PATIENT NAME: MARY ABURTO MEDICAL RECORD: [id number] :41 LOCATION:D.OPS ADMISSION DATE: SURGEON: RYLAN WERNER MD DATE OF OPERATION: 08/14/2017 PREOPERATIVE DIAGNOSES: 1. Anal cancer. 2. Hypertension. 3. Hypercholesterolemia. POSTOPERATIVE DIAGNOSES: 1. Anal cancer. 2. Hypertension. 3. Hypercholesterolemia. PROCEDURE: Right subclavian vein port placement with fluoroscopic interpretation. SURGEON: Rylan Werner MD REPORT OF PROCEDURE: The patient's right chest was prepped and draped in sterile fashion. A 20 mL of 1% lidocaine with epinephrine was infused into the surrounding tissues. A needle was then used to cannulate the right subclavian vein. The guidewire was advanced with ease. Fluoro was used to note that the wire was in good position in the venous system. A skin incision was made on the right superolateral chest and a subcutaneous pouch was made over the pectoral fascia. The catheter was tunneled between this pouch and the wire exit site. The port was then sutured to the pectoral fascia using interrupted 4-0 Prolenes times 2. The port was then cut with a beveled tip at 22 cm. The dilator trocar device was placed over the wire and the wire and dilator were removed. The catheter tip was advanced through the trocar and the trocar was removed. The catheter was noted on fluoroscopy to rest in good position at the right atrial superior vena caval junction. The catheter aspirated nonpulsatile dark blood and flushed easily with heparinized saline. The subcutaneous tissues were then reapproximated with interrupted 3-0 Vicryl and the skin was closed with running subcutaneous 5-0 Monocryl. COMPLICATIONS: None. CONDITION: Stable. ANESTHESIA: TIVA and local. BLOOD LOSS: Minimal. TRANSINT:[id number] Voice Confirmation ID: [id number] DOCUMENT ID: [id number] OPERATIVE REPORT [id number] LAMONTEJOSHMARYRYLAN QURESHI MD at 0801 CC: MILLY DENNY MD and SAVI LEMUS DO [id number] DICTATION DATE: 08/14/17 0837 RACE STARTER: 08/14/17 1206 [facility] 08/14/17 [facility] [address] [place] [address]
[~2017-08-14 05:34] MED LIST changes: -HYDROCODON-ACE1 EAC9 PO
[2017-08-14] MEDS ORDERED: HYDROCODON-ACE1 EAC9 PO (06:24)
[2017-08-14 06:25] VITALS: BP 134/62; Ht 170.2 cm; Wt 70.8 kg
[2017-08-14 07:07] LABS: BASOPHILS 1.1 % (0-2); EOSINOPHILS 10.3 % (0-7); HEMATOCRIT 29.4 % (42.0-54.0); IMMATURE GRANULOCYTES 0.4 % (0-5); LYMPHOCYTES 10.3 % (15-50); MEAN PLATELET VOLUME 9.2 fL (7.4-10.4); MONOCYTES 18.5 % (2-11); NEUTROPHILS 59.4 % (40-80); RBC 3.03 10x6/uL (4.20-6.10); RDW 17.7 % (11.5-14.5); WBC 5.4 10x3/uL (4.8-10.8)
[2017-08-14 07:08] LABS: PLATELET COUNT 146 10x3/uL (130-400)
[2017-08-14 07:25] LABS: APTT 28.7 SECONDS (22.8-39.4); INR 1.01 (0.85-1.17); PROTIME 12.9 SECONDS (11.6-15.0)
[2017-08-14 07:28] LABS: CALC OSMOLALITY 286 mosm/kg (275-300); CALCIUM 8.5 mg/dL (8.5-10.1); CARBON DIOXIDE 26.9 mmol/L (21.0-32.0); CHLORIDE - SERUM 108 mmol/L (98-107); CREATININE - SERUM 0.6 mg/dL (0.6-1.3); GLUCOSE 86 mg/dL (74-106); POTASSIUM - SERUM 3.3 mmol/L (3.5-5.1); SODIUM 144 mmol/L (136-145); UREA NITROGEN 16 mg/dL (7-18); eGFR NON AFRICAN AMERICAN > 90 mL/min (90-120)
== END 2017-08-14 09:11 | disposition home or self-care (01) ==
LOC: D.OPS 05:34 → D.PAN 08:00 → D.OPS 09:11 → D.PAN 08-15 07:30 → D.OPS 08-15 11:30
PROVIDERS: Anesthesiology
DX: C21.0 Malignant neoplasm of anus, unspecified (principal); I10 Essential (primary) hypertension; E78.00 Pure hypercholesterolemia, unspecified; Z01.812 Encounter for preprocedural laboratory examination

== ENCOUNTER → 2017-10-13 17:31 | Outpatient (CLI) | payer MEDICARE, OTHER ==
[2017-08-14 06:25] VITALS: BMI 24.5
[~2017-10-13 17:31] MED LIST changes: +HYDROCODON-ACE1 EAC9 PO
== END | disposition home or self-care (01) ==
LOC: D.LABREF 17:31
DX: R22.2 Localized swelling, mass and lump, trunk (principal); Z85.048 Personal history of other malignant neoplasm of rectum, rectosigmoid junction, and anus; Z98.890 Other specified postprocedural states